=== PATIENT | female | born 1985 | race Caucasian/White ===

== ENCOUNTER 2017-01-27 19:00 | Inpatient (IN) | payer OTHER ==
--- NOTE | ~2017-01-27 | DS ---
Unit #: [id number] #: [id number] Patient: [facility]OMB [id number] [facility] [address] [place] [address] [id number] I MR#: [id number] NAME: JADE LIPSCOMB ROOM: [facility] Age: 32 Sex: F Admission Date: 01/27/2017 : 1985 Discharge Date: 02/02/2017 Attending Physician: Adelso Haley M.D. Primary Care Physician: Generic Doctor Not In System DISCHARGE SUMMARY IDENTIFYING DATA Ms. Lipscomb is a 32-year-old white female with history of substance abuse and mood disorder, who was self-referred to the program. DISCHARGE DIAGNOSES Psychiatric: Opioid dependence, moderate and acute withdrawals; opioid-induced mood disorder. Medical: None. Stressors: Moderate psychosocial stressors. HISTORY OF PRESENT ILLNESS Please see initial psychiatric evaluation for details. PAST PSYCHIATRIC HISTORY Please see initial psychiatric evaluation for details. PAST MEDICAL HISTORY Please see initial psychiatric evaluation for details. HOSPITAL COURSE The patient was admitted to the adult chemical dependency unit at [facility] donte [facility]berg and was oriented to the hospital environment. Routine p.r.n. medications were initiated, and she was started on the opioid detox protocol and was closely monitored. She was, however, seen to be showing very poor insight into her situation and decided that she wanted to leave against medical advice and was encouraged to complete the treatment program, she refused to accept recommendations of the treatment team and was denying any suicidal ideations, intent, or plan and was not meeting criteria for involuntary psychiatric hospitalization and as such, it was decided that she will be discharged home and will continue treatment on an outpatient basis. DISCHARGE MEDICATIONS None. DISCHARGE CONDITION Stable. PROGNOSIS Guarded. Dictated by... Adelso Haley M.D. Unit #: [id number] #: [id number] Patient: JADE LIPSCOMB IAA/modl TD: 03/17/2017 23:13 JOB #: [id number] DISCHARGE SUMMARY Page 1 of 1 X Adelso Haley MD X DISCHARGE SUMMARY
--- NOTE | ~2017-01-27 | A ---
[facility] Nutrition Therapy DATE: 01/28/17 Patient: JADE WING Physician: SAEID Address: [address] [place] [address] Room/Bed: [address], Zip: [place] [address] Admit Date: 01/27/17 Date of : [birth year] Height: 5 7 Weight: 134 61.92314 NUTRITIONAL ASSESSMENT: REASON: UNINTENTIONAL WEIGHT LOSS PATIENT ADMITTED FOR HEROIN DETOX PMH: WISDOM TEETH REMOVAL SEVERAL MONTHS AGO Anthropometrics: HT: 67", WT: 135#, BMI: 21.1, %IBW: 100 Labs: 01/28/17- NUTRITIONAL LABS WNL Meds: MVI, DETOX PROTOCOL, CEPHALEXIN Assessment: PATIENT IS A 32 Y/O FEMALE ADMITTED FOR HEROIN DETOX. PATIENT IS CURRENTLY UNEMPLOYED, SMOKES 1/2 PPD, HAS FREQUENT CANNABIS USE, AND HAS HAD DAILY HEROIN USE FOR THE LAST 6 WEEKS. PATIENT WAS INJECTING HEROIN INTO HER PICC LINE, WHICH HAS SINCE BEEN REMOVED. PATIENT WAS ALSO USING SUBOXONE WHILE IN THE HOSPITAL LAST WEEK. UPON ADMIT PATIENT STATED SHE HAD NO APPETITE, A 15# WEIGHT LOSS OVER 2-3 MONTHS, AND SHE HAS ONLY BEEN SLEEPING 4 HOURS/NIGHT ON AVERAGE. PATIENT RELAPSED AFTER HER WISDOM TEETH REMOVAL SURGERY SEVERAL MONTHS AGO. PATIENT HAD TO HAVE 2 FOLLOWING SURGERIES D/T INFECTIONS. PATIENT IS ACTIVELY DETOXING AND EXPERIENCING RESTLESSNESS, ANXIETY, NAUSEA, AND VOMITING. PATIENT IS ON AN ANITBIOTIC WHICH MAY ALSO CAUSE GI UPSET. NURSING REPORTED THAT PATIENT IS TOLERATING HER REGULAR DIET ATT AND THERE ARE NO SKIN ISSUES NOTED. PATIENT'S BMI IS WITHIN A HEALTHY RANGE AND SHE IS 100% OF HER IBW. THIS RD SUSPECTS WEIGHT AND APPETITE WILL STABILIZE AND POSSIBLY INCREASE FOLLOWING DETOX. Dx: UNINTENTIONAL WEIGHT LOSS R/T DRUG USE, WISDOM TEETH REMOVAL AEB SELF-REPORTED WEIGHT LOSS AND DECREASED APPETITE, ACTIVE WITHDRAWAL SYMPTOMS, NUTRITIONAL RISK POINT Intervention: REGULAR DIET, MEDS PER MD, DETOX, PSYCH Monitoring, Evaluation and Goals: 1. ADEQUATE PO INTAKES >50% OF MEALS 2. PREVENT, CORRECT MICRO/MACRO NUTRIENT DEFICIENCIES 3. WEIGHT; MAINTAIN CURRENT WEIGHT, PREVENT FURTHER WEIGHT LOSS MONITOR: WEIGHTS, LABS, PO/FLUID INTAKES Recommendations: 1. CONTINUE REGULAR DIET TOLERATED. PATIENT HAD WISDOM TEETH REMOVAL SEVERAL MONTHS [facility] DATE: 01/28/17 Patient: JADE WING Physician: SAEID Address: [address] [place] [address] Room/Bed: [address], Zip: [place] [id number] Admit Date: 01/27/17 Date of : [birth year] Height: 5 7 Weight: 134 61.39336 AGO. IF PATIENT UNABLE TO TOLERATE CURRENT DIET PLEASE CONSULT GAS REGULATOR REPAIRER HELPER FOR FURTHER EVALUATION 2. ENCOURAGE ADEQUATE PO AND FLUID INTAKES. PATIENT IS AT A HIGHER RISK FOR DEHYDRATION D/T CURRENT NAUSEA AND VOMITING 3. OBTAIN WEIGHTS ROUTINELY (EVERY 3-4 DAYS) TO ENSURE PATIENT OBTAINS ADEQUATE ORAL INTAKE 4. IF PO INTAKES ARE BELOW 50% OF MEALS PLEASE ORDER ENSURE BID TO PROMOTE ADEQUATE KCAL AND PROTEIN INTAKES, AND TO PREVENT FURTHER WEIGHT LOSS 5. CONSULT RD WITH ANY FURTHER NUTRITION QUESTIONS OR CONCERNS. WILL CONTINUE TO FOLLOW-UP WITH PATIENT'S WEIGHTS AND PO INTAKES RD TO F/U PER PROTOCOL AND PRN R/T PATIENT MILD/MODERATELY COMPROMISED Respectfully, SAMUEL LYONS RD, LD [facility] cc: client file
--- NOTE | ~2017-01-27 | PN ---
Unit #: [id number] #: [id number] Patient: JADE LIPSCOMB [id number] [facility] [address] [place] [address] [id number] I MR#: [id number] NAME: JADE LIPSCOMB ROOM: P212 Age: 32 Sex: F Admission Date: 01/27/2017 : 1985 Attending Physician: Adelso Haley M.D. Admitting Physician: Adelso Haley M.D. Primary Care Physician: Generic Doctor Not In System [facility] PROGRESS NOTES DATE February 01, 2017 DISCUSSION Ms. Lipscomb is a 32-year-old white female, who was seen today and chart was reviewed and the case was discussed with the staff. She appears to be better than yesterday but still being unstable and tearful, but was able to sleep last night. Meanwhile, she has been taking the medications and tolerating them fairly well. MENTAL STATUS EXAMINATION Young white female, who was casually dressed with fair personal hygiene and appears to be in no acute distress or discomfort. She was awake and alert on interaction with intact orientation. Her mood was anxious with a congruent affect. The patient denies any suicidal or homicidal ideations. Her insight and judgment remain slightly impaired. TREATMENT PLAN 1. We will continue her on her current treatment protocol, and will monitor her response to the medications, and make further adjustments as needed. 2. We will continue to followup. Dictated by... Miguel Do/michael TD: 02/02/2017 11:20 JOB #: [id number] Unit #: [id number] #: [id number] Patient: JADE LIPSCOMB PROGRESS NOTES Page 1 of 1 X Adelso Haley MD X PROGRESS NOTE
--- NOTE | ~2017-01-27 | HP ---
Unit #: [id number] #: [id number] Patient: NORI WING [id number] [place] [address] [id number] I MR#: [id number] NAME: NORI WING ROOM: P212 Age: 32 Sex: F Admission Date: 01/27/2017 : 1985 Attending Physician: Adelso Haley M.D. Admitting Physician: Adelso Haley M.D. Primary Care Physician: Generic Doctor Not In System HISTORY AND PHYSICAL HISTORY OF PRESENT ILLNESS Nori is a 32 year old admitted to [address] [place] [address] because of her drug use. She shoots heroin. PAST MEDICAL HISTORY 1. Long history of opioid abuse to include IV heroin. 2. History of withdrawal seizures. PAST SURGICAL HISTORY 1. Oral. 2. . ALLERGIES No known drug allergies. SOCIAL HISTORY Smokes 1 pack per day. Denies alcohol. Admits to a long history of opioid abuse to include IV heroin. FAMILY HISTORY Medically noncontributory. REVIEW OF SYSTEMS CONSTITUTIONAL: No fever or chills. HEENT: Denies any sore throat, ear pain or runny nose. CARDIOVASCULAR: Denies chest pain, irregular heart rhythm or palpitations. CHEST: Denies shortness of breath or cough. No hemoptysis. GASTROINTESTINAL: Denies nausea, vomiting, diarrhea or chronic constipation. ENDOCRINE: Denies history of increased thirst or urination. No recent significant weight loss or gain. GENITOURINARY: Denies dysuria, frequency, or hematuria. SKIN: Denies any rashes. HEMATOLOGIC: Denies history of increased bleeding or bruising. MUSCULOSKELETAL: Denies any hot, swollen joints. No generalized muscle pain. NEUROLOGIC: Denies problems with vision or speech. No frequent, severe headaches. No numbness, tingling or weakness in any extremities. Denies loss of bladder or bowel control. CURRENT MEDICATIONS 1. Detox protocol. 2. Keflex 1000 mg t.i.d. Unit #: [id number] #: [id number] Patient: NORI WING PHYSICAL EXAMINATION GENERAL: Alert, well-nourished, in no apparent distress. VITAL SIGNS: Blood pressure 156/84, heart rate 80, respirations 16, temperature 98.6. WEIGHT: 135. HEIGHT: 5 feet 7 inches. SKIN: Warm and dry without rash or lesion. HEENT: Normocephalic. TMs not viewed. Oral and nasal passages clear. Conjunctivae clear. PERRLA. EOMs intact. NECK: Supple without lymphadenopathy or thyromegaly. HEART: Regular rate and rhythm without murmur. LUNGS: Clear. ABDOMEN: Soft, nontender. : Not done. EXTREMITIES: No evidence of cyanosis, clubbing or edema. Moves all without focal deficit. NEUROLOGICAL: Grossly within normal limits. Cranial Nerves: II: Visual mohamud are intact. III, IV AND : Extraocular movements are intact. Pupils are equal, round and reactive to light. V: Facial sensation is grossly normal. VII: Facial movements and expression are normal. VIII: Auditory acuity grossly intact. IX, X: Uvula is midline. Phonation is normal. XI: Patient shrugs shoulders and turns head normally. XII: Tongue protrudes in the midline. Sensory and Motor Function: Sensory and motor sensation is grossly normal. Motor: moves all extremities well. Coordination: Gait is normal. Deep Tendon Reflexes: Intact. IMPRESSION Psychiatric admission. RECOMMENDATIONS PSYCHIATRIC: Per psychiatrist. MEDICAL: See no contraindications to participate in facility's activities. MEDICAL PROGNOSIS Good. MEDICAL CONDITION Stable. Dictated by... Bettina Willoughby PKayleyAKayley-Nely. for Miguel Mir/rebecca TD: 01/28/2017 16:49 JOB #: [id number] Unit #: [id number] #: [id number] Patient: NORI WING HISTORY AND PHYSICAL Page 1 of 1 X Bettina Willoughby X HISTORY AND PHYSICAL
--- NOTE | ~2017-01-27 | PN ---
Unit #: [id number] #: [id number] Patient: JADE LIPSCOMB [id number] [facility] [address] [place] [address] [id number] I MR#: [id number] NAME: JADE LIPSCOMB ROOM: [facility] Age: 32 Sex: F Admission Date: 01/27/2017 : 1985 Attending Physician: dAelso Haley M.D. Admitting Physician: Adelso Haley M.D. Primary Care Physician: Yuliet Doctor Not In System [facility] PROGRESS NOTES DATE OF SERVICE: 01/31/2017 SUBJECTIVE Ms. Lipscomb is a 32-year-old white female with substance abuse and mood disorder, who was seen today and chart was reviewed and case was discussed with the staff, who reports the patient was withdrawn and doing long and has been in the shower and has been crying very difficult to express and was moving from one tangent to another and would . She also has been pushing to leave even though she does not appear to be stable at all. As such, the patient was encouraged to comply with treatment recommendations. MENTAL STATUS EXAMINATION Young white female who was casually dressed with fair personal hygiene, appears to be in no acute distress or discomfort. She was awake and alert with intact orientation. Her mood was anxious with a congruent affect. She denies any suicidal or homicidal ideation. Her insight and judgment remain slightly impaired. TREATMENT PLAN 1. We will continue her on her current treatment protocol. We will monitor her response to the medications and make further adjustments as needed. 2. We will continue to follow up. Dictated by... Miguel Do/mirtha TD: 02/01/2017 22:31 JOB #: [id number] Unit #: [id number] #: [id number] Patient: JADE LIPSCOMB CHELY PROGRESS NOTES Page 1 of 1 X Adelso Haley MD PROGRESS NOTE
--- NOTE | ~2017-01-27 | PN ---
Unit #: [id number] #: [id number] Patient: JADE LIPSCOMB [id number] [facility] [address] [place] [address] [id number] I MR#: [id number] NAME: JADE LIPSCOMB ROOM: P212 Age: 32 Sex: F Admission Date: 01/27/2017 : 1985 Attending Physician: Adelso Haley M.D. Admitting Physician: Adelso Haley M.D. Primary Care Physician: Generic Doctor Not In System [facility] PROGRESS NOTES DATE OF SERVICE 01/29/2017 DISCUSSION Ms. Lipscomb is a (1) __-year-old white female who was seen today. Chart was reviewed and case was discussed with the staff. She has been anxious, withdrawn, and seclusive to herself. She was lying in her bed and appears to be in distress or discomfort as she goes through detox. Meanwhile, she has been taking the medications and tolerating them fairly well. MENTAL STATUS EXAMINATION Young white female who is casually dressed with fair personal hygiene, appears to be in no acute distress or discomfort. She was awake and alert on interaction with intact orientation. Her mood is anxious with congruent affect. She denies any suicidal or homicidal ideations. Her insight and judgment remain slightly impaired. TREATMENT PLAN 1. We will continue her on her current treatment protocol. We will monitor her response to the medications and make further adjustments as needed. 2. We will continue to follow up. Dictated by... Adelso Haley M.D. IAA/morrisg TD: 01/30/2017 07:33 JOB #: [id number] Unit #: [id number] #: [id number] Patient: JADE LIPSCOMB [facility] PROGRESS NOTES Page 1 of 1 X Adelso Haley MD PROGRESS NOTE
--- NOTE | ~2017-01-27 | PA ---
Unit #: [id number] #: [id number] Patient: JADE WING [id number] [facility] [address] [place] [address] [id number] I MR#: [id number] NAME: JADE WING ROOM: P212 Age: 32 Sex: F Admission Date: 01/27/2017 : 1985 Date of Assessment: Attending Physician: Adelso Haley M.D. Admitting Physician: Adelso Haley M.D. Primary Care Physician: Generic Doctor Not In System PSYCHIATRIC ASSESSMENT DATE OF SERVICE 01/28/2017. IDENTIFYING DATA Ms. Cuello is a 32-year-old single white female, who is a resident of [place], [place], and was self-referred to the hospital on voluntary basis. CHIEF COMPLAINT "I'm just so sick, I was at [place] from Thursday to Thursday." HISTORY OF PRESENT ILLNESS Ms. Cuello is a 32-year-old white female, who was self-referred to the hospital with a significant detox scores indicating of 24 on COWS and 14 on CIWA and was in distress and discomfort and stated "I guess the detox from methadone and I used Suboxone Thursday." The patient reports that she was using heroin trying to go to [facility] and there she was put on Suboxone and that she has been using heroin through PICC line and PICC line was removed and "I was clean before I had all these surgeries." She reports that she has been unemployed for the last 4 months and she had surgery and has an associated degree in [employer] information system; however, she reports that her addiction has significant consequences as she has from her spouse and has a boyfriend and that she has been having increasing depression with feelings of hopelessness and helplessness, and poor energy level, and loss of interest in activities, even though she denies any suicidal ideations, intent, or plan. SUBSTANCE ABUSE HISTORY The patient reports history of experimentation with cannabis, acid, opioids, amphetamines, and methadone and currently, opioids has been her drug of choice as she reports that she started getting prescription pain pills at the age of 23 and started using heroin in 2008 and she has been using heroin for the last 6 weeks 350 dollars or half a gram a day and has been snorting it, but then also has been injecting it through her PICC line which now has been removed and her last use of heroin was couple of days ago and was seen to have some significant withdrawal symptoms. PAST PSYCHIATRIC HISTORY The patient reports history of chemical dependency treatment at [facility] and [facility], and review of the medical records indicate that currently she is not active in any treatment program, is not seeing a psychiatrist, and is not taking any psychotropic medications. Unit #: [id number] #: [id number] Patient: JADE WING PAST MEDICAL HISTORY No acute or chronic medical illnesses. ALLERGIES No known medication allergies. PERSONAL AND SOCIAL HISTORY A 32-year-old white female, who reports that she lives at home with her boyfriend who is 24 years old and she also has a 97-vphji-kxv son and 7-year-old daughter. MENTAL STATUS EXAMINATION Young white female who was casually dressed with fair personal hygiene, appears to be in no acute distress or discomfort. She was awake and alert on interaction with intact orientation to time, place, and person. Her mood was anxious and depressed with a congruent affect. Her speech was slow and restricted in content. She denies any suicidal or homicidal ideations and also denies any auditory or visual hallucinations. Her insight and judgment remain significantly impaired. DIAGNOSTIC IMPRESSION Psychiatric: Opioid dependence, moderate and acute withdrawal; opioid-induced mood disorder. Medical: None. Stressors: Moderate psychosocial stressors. TREATMENT PLAN 1. The patient has presented with a history of substance abuse and mood disorder, and has been decompensating and will need inpatient hospitalization for detoxification, safety, and stabilization. We will start her on detox protocol. We will closely monitor for any worsening withdrawal symptoms. 2. Supportive therapy was provided to the patient. 3. Safe, structured, and nourishing environment will be provided. ESTIMATED LENGTH OF STAY 5 to 7 days. ABILITY TO HELP SELF Limited. WILLINGNESS TO HELP SELF The patient appears to be willing to help self. STRENGTHS 1. Communicative. 2. Cooperative. PROBLEMS 1. Chronic dysphoric symptoms. 2. Poor social support system. DISCHARGE CRITERIA This will be contingent upon the patient's ability to go through detox without having any significant withdrawal symptoms as well as her ability to stay safe to herself, particularly after discharge from the hospital. Dictated by... Unit #: [id number] #: [id number] Patient: MECCAJADE M.D. IAA/mirtha TD: 01/28/2017 08:03 JOB #: [id number] PSYCHIATRIC ASSESSMENT Page 1 of 1 X Adelso Haley MD PSYCHIATRIC ASSESSMENT
--- NOTE | ~2017-01-27 | PN ---
Unit #: [id number] #: [id number] Patient: JADE LIPSCOMB [id number] [facility] [address] [place] [address] [id number] I MR#: [id number] NAME: JADE LIPSCOMB ROOM: P212 Age: 32 Sex: F Admission Date: 01/27/2017 : 1985 Attending Physician: Adelso Haley M.D. Admitting Physician: Adelso Haley M.D. Primary Care Physician: Generic Doctor Not In System [facility] PROGRESS NOTES DATE OF SERVICE 01/30/2017 DISCUSSION Ms. Lipscomb is a 32-year-old white female who was seen today. Chart was reviewed and case was discussed with the staff. She remains anxious, withdrawn, disorganized, and rather seclusive to herself. Meanwhile, she has been cooperative with the treatment recommendations and has been taking the medications and tolerating them fairly well with no reported side effects. MENTAL STATUS EXAMINATION Young white female who is casually dressed with fair personal hygiene, appears to be in no acute distress or discomfort. She was awake and alert with intact orientation. Her mood is anxious with a congruent affect. She denies any suicidal or homicidal ideations. Her insight and judgment remain slightly impaired. TREATMENT PLAN 1. We will continue her on her current medications and treatment protocol. We will monitor her response and make further adjustments as needed. 2. We will continue to follow up. Dictated by... Adelso Haley M.D. IAA/bzg TD: 01/31/2017 07:18 JOB #: [id number] Unit #: [id number] #: [id number] Patient: JADE LIPSCOMB [facility] PROGRESS NOTES Page 1 of 1 X Adelso Haley MD X PROGRESS NOTE
[2017-01-28 10:01] LABS: THYROID STIMULATING HORMONE 0.42 uIU/ml (0.34-5.60)
[2017-01-28 10:06] LABS: BASOPHIL# 0.1 X10e3 (0-0.3); BASOPHIL% 0.5 % (0-2.5); DIFF IND YES; EOSINOPHIL% 0.1 % (0.0-7.0); HEMATOCRIT 40.2 % (35.0-45.0); HEMOGLOBIN 13.3 gm/dL (12.0-16.0); LYMPHOCYTE# 3.9 X10e3 (1.0-3.5); LYMPHOCYTE% 22.1 % (17.0-45.0); MEAN CELL VOLUME 86.4 FL (83-96); MEAN CORPUSCULAR HEMOGLOBIN 28.5 PG (28-34); MEAN PLATELET VOLUME 8.5 FL (6.5-11.5); MONOCYTE# 0.9 X10e3 (0-1.0); MONOCYTE% 5.2 % (3.0-12.0); NEUTROPHIL# 12.8 X10e3 (1.5-7.1); NEUTROPHIL% 72.1 % (40-75); PLATELET COUNT 516 X10e3 (140-420); RED BLOOD COUNT 4.66 X10e (3.90-5.30); RED CELL DISTRIBUTION WIDTH 12.8 % (11.0-15.5); WHITE BLOOD COUNT 17.8 X10e3 (4.0-10.5)
[2017-01-28 10:08] LABS: FREE THYROXIN (T4) 2.01 ng/dL (0.58-1.64)
[2017-01-28 10:40] LABS: ALBUMIN SERUM 3.8 g/dL (3.5-5.0); BILIRUBIN,TOTAL 0.7 mg/dL (0.2-2.0); BUN/CREATININE RATIO 27.14; CALCIUM SERUM 9.3 mg/dL (8.4-10.2); CREATININE SERUM 0.7 mg/dL (0.6-1.4); GLOM FILT RATE Estimated 113.8 mL/min (>60); PROTEIN TOTAL SERUM 7.1 g/dL (6.0-8.3)
[2017-01-28 11:17] LABS: PLATELET ESTIMATE INCREASED (NORMAL); RBC NORMAL YES
[2017-01-29 11:00] LABS: URINE APPEARANCE TURBID; URINE BILIRUBIN NEG (NEG); URINE BLOOD NEG (NEG); URINE COLOR DK YELLOW; URINE GLUCOSE NEG (NEG); URINE KETONE TRACE (NEG); URINE LEUKOCYTE ESTERASE NEG (NEG); URINE NITRATE NEG (NEG); URINE PROTEIN 1+ (NEG); URINE SPECIFIC GRAVITY 1.038 (1.003-1.035)
[2017-01-29 11:03] LABS: URINE BACTERIA AUWI NEG (NEGATIVE); URINE SQUAMOUS EPITHELIAL CELL FEW /[HPF]; UWBCS1 AUWI 0-2 (0-5)
[2017-01-29 11:39] LABS: AMPHETAMINE NEG (NEG); BARBITURATES NEG (NEG); BENZODIAZEPINES NEG (NEG); COCAINE NEG (NEG); MARIJUANA NEG (NEG); OPIATES NEG (NEG); TRICYCLIC ANTIDEPRESSANTS NEG (NEG); U METHADONE POS (NEG)
[2017-01-29 12:10] LABS: URBCS1 AUWI 0-2 /[HPF] (0-2)
[2017-01-29 12:12] LABS: U HYALINE CASTS AUWI 0-2 /[LPF]; URINE AMORPHOUS SEDIMENT AMORP URATES
[2017-01-30 18:26] LABS: BASOPHIL# 0.1 X10e3 (0-0.3); BASOPHIL% 0.7 % (0-2.5); EOSINOPHIL% 0.2 % (0.0-7.0); HEMATOCRIT 44.2 % (35.0-45.0); HEMOGLOBIN 14.6 gm/dL (12.0-16.0); LYMPHOCYTE# 3.1 X10e3 (1.0-3.5); LYMPHOCYTE% 23.2 % (17.0-45.0); MEAN CELL VOLUME 86.4 FL (83-96); MEAN CORPUSCULAR HEMOGLOBIN 28.6 PG (28-34); MEAN CORPUSCULAR HGB CONC 33.1 g/dL (30-36); MEAN PLATELET VOLUME 8.6 FL (6.5-11.5); MONOCYTE# 0.8 X10e3 (0-1.0); MONOCYTE% 5.9 % (3.0-12.0); NEUTROPHIL# 9.5 X10e3 (1.5-7.1); PLATELET COUNT 552 X10e3 (140-420); RED BLOOD COUNT 5.12 X10e (3.90-5.30); RED CELL DISTRIBUTION WIDTH 12.9 % (11.0-15.5); WHITE BLOOD COUNT 13.5 X10e3 (4.0-10.5)
[2017-01-30 18:28] LABS: DIFF IND NO
== END 2017-02-02 11:55 | disposition left against medical advice (07) | DRG 894 ==
LOC: P2S 21:50
PROVIDERS: Psychiatry & Neurology Psychiatry
PROC: HZ2ZZZZ Detoxification Services for Substance Abuse Treatment (ICD-10-PCS; principal; 2017-01-27)
DX: F11.23 Opioid dependence with withdrawal (principal); F11.24 Opioid dependence with opioid-induced mood disorder; F17.210 Nicotine dependence, cigarettes, uncomplicated
CPT/HCPCS: 80053; 80307; 81003; 84439; 84443; 84703; 85025; 86592

== ENCOUNTER 2017-05-08 19:40 | Emergency (ER) | payer OTHER ==
[~2017-05-08] VITALS: Ht 170.2 cm; Wt 63.5 kg
--- NOTE | ~2017-05-08 | CR72 ---
[facility] A Service of [facility] RADIOLOGY TEXT RESULTS PATIENT: JADE WING LOCATION: [facility] : [birth year] UNIT #: [id number] AGE: [address]: Yandel Maza MD SEX: F ORDER DR: [id number] [facility] [address] [place], [place] [address] [id number] MR#: [id number] Acc #: [id number] NAME: JADE WING : 1985 SEX: F STUDY DATE/TIME: 05/08/2017 20:38 UNIT: [facility] ROOM: STUDY DESCRIPTION: CR Chest Single View Portable Attending Physician: Yandel Maza M.D. Ordering Physician: Med Salinas M.D. Primary Care Physician: No Primary Care Physician MEDICAL IMAGING REPORT This report is preliminary unless electronic signature is present EXAM Portable chest. HISTORY Shortness of air, cough and congestion for 3 days. FINDINGS Cardiac size and pulmonary vascularity are within normal limits. There are small bilateral pleural effusions. Minimal probable atelectasis in the left base. No airspace infiltrates. IMPRESSION 1. Minimal bilateral pleural effusions. 2. Minimal atelectasis in the left base. No airspace infiltrates. Dictated by... Paolo Dawson M.D. THIS IS AN ELECTRONICALLY VERIFIED REPORT Paolo Dawson M.D. at 05/09/2017 10:05 PM SOPHY/kirsten TD: 05/09/2017 18:18 JOB #: [id number] MEDICAL IMAGING REPORT Page 1 of 1 COPY
== END 2017-05-08 21:30 | disposition home or self-care (01) ==
LOC: CED 19:40
DX: J06.9 Acute upper respiratory infection, unspecified (principal); F17.200 Nicotine dependence, unspecified, uncomplicated
CPT/HCPCS: 71010; 94640; 99284